=== PATIENT | female | born 1955 | race Caucasian/White ===

== ENCOUNTER → 2018-03-06 20:52 | Outpatient (CLI) | payer MEDICARE ==
[2010-09-29 13:02] VITALS: BMI 16.5
== END | disposition home or self-care (01) ==
LOC: D.MAMMO 09:30
DX: Z12.31 Encounter for screening mammogram for malignant neoplasm of breast (principal)

== ENCOUNTER 2018-11-12 18:17 | Inpatient (IN) | payer MEDICARE ==
[~2018-11-12] VITALS: Ht 172.7 cm; Wt 51.7 kg
[2018-11-12] MEDS ORDERED: LISINOPRIL10 MG PO (18:30)
[2018-11-12] MEDS ORDERED: AMBIEN10 MG PO (18:31)
[2018-11-12] MEDS ORDERED: REQUIP XL4 MG PO (18:32)
[2018-11-12 18:49] VITALS: BP 149/76
[2018-11-12 19:00] VITALS: BP 137/78
[2018-11-12 19:11] LABS: BASOPHILS 0.1 % (0-2); EOSINOPHILS 0 % (0-7); HEMATOCRIT 32.2 % (36.0-48.0); HEMOGLOBIN 11.9 g/dL (12-16); IMMATURE GRANULOCYTES 0.2 % (0-5); LYMPHOCYTES 11.3 % (15-50); MCH 33.6 pg (26.0-34.0); MEAN PLATELET VOLUME 8.8 fL (7.4-10.4); MONOCYTES 6.7 % (2-11); NEUTROPHILS 81.7 % (40-80); PLATELET COUNT 183 10x3/uL (130-400); RBC 3.54 10x6/uL (4.00-5.40); RDW 12.4 % (11.5-14.5)
--- NOTE | 2018-11-12 19:15 | NUR ---
report given to micah laguna using sbar
[2018-11-12 19:21] LABS: INR 1.03 (0.85-1.17)
[2018-11-12 19:28] LABS: ALBUMIN 3.6 g/dL (3.4-5.0); ALKALINE PHOSPHATASE 74 U/L (46-116); ALT (SGPT) 18 U/L (10-68); BILIRUBIN - TOTAL 0.54 mg/dL (0.2-1.3); CALC OSMOLALITY 247 mosm/kg (275-300); CALCIUM 9.7 mg/dL (8.5-10.1); CARBON DIOXIDE 26.3 mmol/L (21.0-32.0); CHLORIDE - SERUM 88 mmol/L (98-107); CREATININE - SERUM 0.8 mg/dL (0.6-1.3); POTASSIUM - SERUM 3.4 mmol/L (3.5-5.1); PROTEIN - SERUM 7.2 g/dL (6.4-8.2); SODIUM 124 mmol/L (136-145); UREA NITROGEN 7 mg/dL (7-18); eGFR NON AFRICAN AMERICAN 76 mL/min (90-120)
--- NOTE | 2018-11-12 19:30 | NUR ---
PT ASSISTED TO BSC AT THIS TIME.
[2018-11-12 19:34] LABS: GLUCOSE 107 mg/dL (74-106)
--- NOTE | 2018-11-12 19:34 | NUR ---
URINE COLLECTED AND SENT TO LAB.
[2018-11-12 19:40] LABS: CKMB 1.2 U/L (0.0-3.6); CREATINE KINASE 101 UL (21-215); LIPASE 123 U/L (73-393); MAGNESIUM - SERUM 1.2 mg/dL (1.8-2.4); TROPONIN-I < 0.017 ng/mL (0.000-0.060)
[2018-11-12 19:43] LABS: APPEARANCE CLEAR (CLEAR); BILIRUBIN NEGATIVE (NEGATIVE); COLOR YELLOW (YELLOW); GLUCOSE NEGATIVE (NEGATIVE); KETONE NEGATIVE (NEGATIVE); NITRITE NEGATIVE (NEGATIVE); PROTEIN NEGATIVE (NEGATIVE); UROBILINOGEN NORMAL (NORMAL)
--- NOTE | 2018-11-12 20:05 | NUR ---
ADDITIONAL WARM BLANKETS PROVIDED FOR PT COMFORT AT THIS TIME. FAMILY AT BEDSIDE.
[2018-11-12 21:02] VITALS: BP 130/75
--- NOTE | 2018-11-12 21:30 | NUR ---
REPORT CALLED TO NASREEN SCOTT.
[2018-11-12 23:32] VITALS: BP 124/68; BMI 17.3
--- NOTE | 2018-11-12 23:54 | NUR ---
RECEIVED PT. RR EVEN AND UNLABORED. A&O X4. NO S/S OF DISTRESS NOTED. PT TOOK HOME MEDICAITON AMBIEN. HOME MEDICATION TAKEN AND SENT TO PHARMACY. DENIES PAIN OR DISCOMFORT. WILL CPOC.
[2018-11-13 00:06] LABS: CKMB 1.1 U/L (0.0-3.6); CREATINE KINASE 102 UL (21-215); TROPONIN-I < 0.017 ng/mL (0.000-0.060)
[2018-11-13 04:00] VITALS: BP 124/68
[2018-11-13 06:29] LABS: BASOPHILS 0.1 % (0-2); EOSINOPHILS 0.1 % (0-7); HEMATOCRIT 32.5 % (36.0-48.0); HEMOGLOBIN 11.7 g/dL (12-16); IMMATURE GRANULOCYTES 0.2 % (0-5); LYMPHOCYTES 21.3 % (15-50); MCH 33.4 pg (26.0-34.0); MCV 92.9 fL (80.0-100.0); MEAN PLATELET VOLUME 9.4 fL (7.4-10.4); MONOCYTES 8.9 % (2-11); NEUTROPHILS 69.4 % (40-80); PLATELET COUNT 215 10x3/uL (130-400); RDW 12.8 % (11.5-14.5); WBC 8.4 10x3/uL (4.8-10.8)
--- NOTE | 2018-11-13 07:01 | NUR ---
REPORT RECEIVED. SHE IS ALERT. ABLE TO VOICE NEEDS. RESP EVEN WITHOUT LABOR. IV IN RIGHT FOREARM OF NS WITH 20K INFUSING AT 100CC/HR SITE IS CLEAR. CL IN REACH. CAREPLAN REVIEW DONE WITH SAFETY PRECAUTIONS IN PLACE. BED IN LOWEST POSITION WITH BED LOCKED
[2018-11-13 07:08] LABS: AMYLASE - SERUM 23 U/L (25-115); CALC OSMOLALITY 263 mosm/kg (275-300); CARBON DIOXIDE 27.7 mmol/L (21.0-32.0); CHLORIDE - SERUM 98 mmol/L (98-107); CREATINE KINASE 81 UL (21-215); CREATININE - SERUM 0.9 mg/dL (0.6-1.3); GLUCOSE 84 mg/dL (74-106); LIPASE 119 U/L (73-393); MAGNESIUM - SERUM 1.5 mg/dL (1.8-2.4); POTASSIUM - SERUM 3.6 mmol/L (3.5-5.1); SODIUM 133 mmol/L (136-145); TROPONIN-I < 0.017 ng/mL (0.000-0.060); UREA NITROGEN 11 mg/dL (7-18); eGFR NON AFRICAN AMERICAN 67 mL/min (90-120)
[2018-11-13 08:40] VITALS: BP 118/70
--- NOTE | 2018-11-13 10:30 | NUR ---
HE HAS REFUSED HIS MEDS THIS AM. ONLY TOOK HIS LOPRESSOR.STATES HE WILL TAKE IT AT NOON MEAL. MIRELA DRAINS WITH SOME RED DRAINAGE NOTED.
[2018-11-13 12:27] VITALS: BP 118/68
--- NOTE | 2018-11-13 12:30 | NUR ---
SHE ATE LUNCH AND TOLERATED WELL. SHE CONTINUES TO COUGH AT TIMES. RESP EVEN WITHOUT LABOR. DENIES ANY CURRENT NEEDS. NO CHANGE IN STATUS.
[2018-11-13 12:47] VITALS: Ht 172.7 cm; Wt 51.7 kg
[2018-11-13 16:00] VITALS: BP 118/71
--- NOTE | 2018-11-13 18:10 | NUR ---
ALERT ABLE TO VOICE NEEDS IV SITE IS CLEAR DENIES ANY C/O CL IN REACH
--- NOTE | 2018-11-13 19:33 | NUR ---
PT IN BED. DENIES NEEDS AT THIS TIME.
[2018-11-13 20:00] VITALS: BP 113/71
[2018-11-14] VITALS: BP 118/69
[2018-11-14 04:30] VITALS: BP 117/69
[2018-11-14 06:02] LABS: BASOPHILS 0 % (0-2); EOSINOPHILS 0.3 % (0-7); HEMATOCRIT 33.1 % (36.0-48.0); HEMOGLOBIN 11.8 g/dL (12-16); IMMATURE GRANULOCYTES 0.1 % (0-5); LYMPHOCYTES 28.9 % (15-50); MCH 33.6 pg (26.0-34.0); MCHC 35.6 g/dL (31.0-37.0); MCV 94.3 fL (80.0-100.0); MEAN PLATELET VOLUME 9.1 fL (7.4-10.4); MONOCYTES 10.3 % (2-11); NEUTROPHILS 60.4 % (40-80); PLATELET COUNT 209 10x3/uL (130-400); RBC 3.51 10x6/uL (4.00-5.40); RDW 13.1 % (11.5-14.5); WBC 7.2 10x3/uL (4.8-10.8)
[2018-11-14 06:36] LABS: CALC OSMOLALITY 265 mosm/kg (275-300); CARBON DIOXIDE 26.1 mmol/L (21.0-32.0); CHLORIDE - SERUM 100 mmol/L (98-107); CREATININE - SERUM 0.8 mg/dL (0.6-1.3); GLUCOSE 94 mg/dL (74-106); MAGNESIUM - SERUM 1.5 mg/dL (1.8-2.4); PHOSPHOROUS 2.5 mg/dL (2.5-4.9); POTASSIUM - SERUM 3.8 mmol/L (3.5-5.1); SODIUM 134 mmol/L (136-145); eGFR NON AFRICAN AMERICAN 76 mL/min (90-120)
[2018-11-14 06:39] LABS: UREA NITROGEN 8 mg/dL (7-18)
--- NOTE | 2018-11-14 07:05 | NUR ---
REPORT RECEIVED. ALERT ABLE TO VOICE NEEDS. IV SITE IS CLEAR. DENIES ANY CURRENT NEEDS. DENIES ANY CHEST PAIN. CL IN REACH. CAREPLAN REVIEW DONE WITH SAFETY PRECAUTIONS IN PLACE. BED IN LOWEST POSITION AND LOCKED
[2018-11-14 08:32] VITALS: BP 119/75
[2018-11-14 11:50] VITALS: BP 123/62
[2018-11-14] MEDS ORDERED: BAYER CHEWABLE81 MG PO (13:11)
[2018-11-14] MEDS ORDERED: ZPAK PO (13:19)
--- NOTE | 2018-11-14 14:50 | MORECARE ---
CASE MANAGEMENT DISCHARGE SUMMARY PATIENT: JADE GIMENEZ UNIT: [id number] ADM DATE: 11/12/18 AGE: 63 : 54 SEX: F ROOM/BED: D.2113 AUTHOR: ADELA HYLTON PHYSICIAN: REFERRING PHYSICIAN: JERSEY ESCALONA MD DATE OF SERVICE: 11/14/18 Discharge Plan Patient Name: JADE GIMENEZ Facility: [facility]:[place] : 1955 Planned Disposition: Home Anticipated Discharge Date: 11/14/18 Discharge Date: Expected LOS: 2 Initial Reviewer: [email or web address] Initial Review Date: 11/14/2018 Generated: 11/14/18 3:50 pm Patient Name: JADE GIMENEZ Page 22852 at 1450 All edits/amendments must be made on the electronic document DICTATION DATE: 11/14/181448 INVESTMENT BROKER: TRUPTI 11/14/18 1449 RPT#: [id number] DC DATE: STATUS: ADM IN [facility] [address] [place] [address] END OF REPORT
--- NOTE | 2018-11-14 14:59 | MORECARE ---
CASE MANAGEMENT DISCHARGE SUMMARY PATIENT: JADE GIMENEZ UNIT: [id number] ADM DATE: 11/12/18 AGE: 63 : 54 SEX: F ROOM/BED: D.8503 AUTHOR: WARNERDOC PHYSICIAN: REFERRING PHYSICIAN: JERSEY ESCALONA MD DATE OF SERVICE: 11/14/18 Discharge Plan Patient Name: JADE GIMENEZ Facility: [facility]:[place] : 1955 Planned Disposition: Home Anticipated Discharge Date: 11/14/18 Discharge Date: Expected LOS: 2 Initial Reviewer: [email or web address] Initial Review Date: 11/14/2018 Generated: 11/14/18 3:59 pm Comments DCP- Discharge Planning Updated by [email or web address]: Nicanor Hooks on 11/14/18 1:[address] Patient Name: JADE GIMENEZ Admission Status: ER Accout number: [id number] Admission Date: 11-12-2018 : 1955 Admission Diagnosis: Attending: SIGRID ESCALONA Current LOS: 2 Anticipated DC Date: 11-14-2018 Planned Disposition: Home Primary Insurance: [employer] Discharge Planning Comments: CM MET WITH PT IN ROOM TO DISCUSS DISCHARGE PLANNING AND NEEDS. PT REPORTS LIVING AT HOME INDEPENDENTLY WITH HER SPOUSE. PT HAS NO MEDICAL EQUIPMENT AND NO OUTSIDE SERVICES ASSISTING IN THE HOME. CM DISCUSSED AVAILABILITY OF HOME HEALTH, REHAB SERVICES AND MEDICAL EQUIPMENT. PT DENIES DISCHARGE NEEDS, REPORTS HER SPOUSE WILL PICK HER UP FOR DISCHARGE HOME. Major Gifts Director: Nicanor Hooks DCPIA - Discharge Planning Initial Assessment Updated by [email or web address]: Nicanor Hooks on 11/14/18 2:51 pm * Is the patient Alert and Oriented? Yes * How many steps to enter\exit or inside your home? * PCP DR BLUE * Pharmacy [facility] * Preadmission Environment Home with Family * ADLs Independent * Equipment None * Other Equipment NONE * List name and contact numbers for known caregivers / representatives who currently or will assist patient after discharge: ELIA GIMENEZ, SPOUSE, * Verbal permission to speak to the caregivers and representatives has been obtained from the patient. N/A * Community resources currently utilized None * Please name any agencies selected above. NONE * Additional services required to return to the preadmission environment? No * Can the patient safely return to the preadmission environment? Yes * Has this patient been hospitalized within the prior 30 days at any hospital? No Last DP export: 11/14/18 1:50 p Patient Name: JADE GIMENEZ Page [id number] at 1459 All edits/amendments must be made on the electronic document DICTATION DATE: 11/14/181458 LOCAL HAZMAT DRIVER: TRUPTI 11/14/181458 RPT#: [id number] DC DATE: STATUS: ADM IN [facility] [address] [place] [address] END OF REPORT
--- NOTE | 2018-11-14 15:05 | NUR ---
DISCHARGE INSTRUCTIONS EXPLAINED IN DETAIL WITH FOLLOW UP APPOINTMENTS NOTED. TELEMETRY RETURNED TO PROPELLANT CHARGE ZONE ASSEMBLER. SHE DENIES ANY C/O. STATES SHE IS READY TO GO HOME.
--- NOTE | 2018-11-14 15:45 | NUR ---
FAMILY IS HERE TO TAKE HER HOME. IV D/C WITH CATH TIP INTACT. PRESSURE HELD WITH MINIMAL BLEEDING. SHE REFUSED W/C TRANSPORT. NO CHANGE IN STATUS, HELEN RECEIVED FROM PHARMACY AND RETURNED TO HER.
--- NOTE | 2018-11-15 14:45 | EC ---
PATIENT:JADE GIMENEZ DATE OF SERVICE: 11/12/18 SEX: F MEDICAL RECORD: [id number] DATE OF : 53 LOCATION:D.M2 D.211 AGE OF PATIENT: 63 ADMISSION DATE: 11/12/18 REFERRING PHYSICIAN: INTERPRETING PHYSICIAN: CHACORTA REDDING MD ECHOCARDIOGRAM REPORT ECHO CHARGES 4 ECHO COMPLETE Date: 11/13/18 CLINICAL DIAGNOSIS: HTN ECHOCARDIOGRAPHIC MEASUREMENTS (adult normal given) AC root (d.<3.7cm) 3.3 cm LV Septum d (<1.2 cm> 1.1 cm Valve Excursion 1.5 cm LV Septum (systole) 1.2 cm Left Atria (s.<4.0cm> 2.9 cm LVPW d(<1.2cm) 1.2 cm RV (d.<2.3cm) 2.8 cm LVPW (sytole) 1.3 cm LV diastole(<5.6CM) 3.2 cm MV E-F(>70mm/sec) cm LV systole 1.8 cm LVOT Diameter 1.7 cm MV exc.(>10mm) 0.9 cm Est.ejection fraction (50-75%) % DOPPLER: LVIT cm/sec A 70.0 cm/sec E 83.0 cm/sec LA cm/sec RVSP 16 mmHg LVOT 107 cm/sec AOP1/2T m/s Asc. Ao 139 cm/sec RVOT 68 cm/sec RA cm/sec PA 120 cm/sec AV Gradient Peak 7.70 mmHg AV Mean 3.63 mmHg AV Area 1.7 cm MV Gradient Peak 4.30 mmHg MV Mean 1.90 mmHg MV Area cm COMMENTS: Assembly Line Machine Operator: Fabrizio MARQUEZ Artist Consultant: 1 Dr. [place] TAPE# PACS Pericardial Effusion N DATE OF SERVICE: 11/13/2018 FINDINGS: 1. Left ventricular chamber size is within normal limits. Left ventricular systolic function is normal. Overall ejection fraction estimated at 60%. 2. Left atrium, right atrium, right ventricular chamber sizes are within normal limits. 3. Valvular structures have normal structure and motion. 4. Doppler interrogation reveals no significant valvular insufficiency or stenosis. ECHOCARDIOGRAM REPORT [id number] JADE GIMENEZ 5. No evidence of pericardial effusion or left ventricular thrombus. TRANSINT:[id number] Voice Confirmation ID: [id number] DOCUMENT ID: [id number] CHACORTA REDDING MD at 1445 CC: [id number] DICTATION DATE: 11/15/18 1104 HEEL PACKER: 11/15/18 1243 DIS IN 11/14/18 [place] [id number] [place] [id number]
== END 2018-11-14 15:45 | disposition home or self-care (01) | DRG 640 ==
LOC: D.ER 18:17 → D.M2 20:50
PROVIDERS: Emergency Medicine; Family Medicine; ADMIT Emergency Medicine; ATTEND Emergency Medicine
DX: E87.1 Hypo-osmolality and hyponatremia (principal); J18.1 Lobar pneumonia, unspecified organism; R07.9 Chest pain, unspecified; I10 Essential (primary) hypertension; D64.9 Anemia, unspecified; E87.6 Hypokalemia; E83.42 Hypomagnesemia; F17.210 Nicotine dependence, cigarettes, uncomplicated

== ENCOUNTER → 2019-04-17 13:18 | Outpatient (CLI) | payer OTHER ==
[2018-11-13 12:47] VITALS: BMI 17.3
[~2019-04-17 13:18] MED LIST: AMBIEN10 MG PO; BAYER CHEWABLE81 MG PO; LISINOPRIL10 MG PO; REQUIP XL4 MG PO; ZPAK PO
== END | disposition home or self-care (01) ==
LOC: D.MAMMO 10:00
PROVIDERS: ATTEND Emergency Medicine
DX: Z12.31 Encounter for screening mammogram for malignant neoplasm of breast (principal)

== ENCOUNTER → 2020-10-07 11:15 | Outpatient (CLI) | payer OTHER ==
[2018-11-13 12:47] VITALS: BMI 17.3
== END | disposition home or self-care (01) ==
LOC: D.MAMMO 11:15
PROVIDERS: ATTEND Nurse Practitioner
DX: Z12.31 Encounter for screening mammogram for malignant neoplasm of breast (principal)